=== PATIENT | female | born 1990 | race African-American/Black ===

== ENCOUNTER 2017-09-19 23:52 | Emergency (ER) | payer SELFPAY ==
[2017-09-20] MEDS ORDERED: Ibuprofen 800 MG TAB ONE (00:12)
== END 2017-09-20 00:55 | disposition home or self-care (01) ==
LOC: NAV ERS 23:52
DX: B34.9 Viral infection, unspecified (principal)
CPT/HCPCS: 99283

== ENCOUNTER 2018-02-11 22:58 | Emergency (ER) | payer SELFPAY ==
[2018-02-11 23:22] LABS: Bilirubin Negative (Negative); Blood, Urine Large (Negative); Glucose, Urine (Dipstick) Negative (Negative); Leukocyte Small (Negative); Nitrite Negative (Negative); Protein, Urine (Dipstick) 30 mg/dL (Neg-Trace)
[2018-02-11 23:26] LABS: Clarity Slightly Cloudy (Clear); Specific Gravity, Urine 1.032 (1.002-1.036)
[2018-02-11 23:27] LABS: Pregnancy Test - Urine (BHCG) Negative (Negative); Pregu Control Background? CLEAR/WHITE (CLR/WHITE); Pregu Control Bar Appear? YES (CONTROL BAR); Specific Gravity 1.032 (1.002-1.036)
[2018-02-11] MEDS ORDERED: Ketorolac Tromethamine 30 MG/ML VIAL ONE (23:27)
[2018-02-11] MEDS ORDERED: Ondansetron HCl/PF 4 MG/2 ML Vial ONE (23:27)
[2018-02-11] MEDS ORDERED: Sodium Chloride 0.9% 1,000 ML ONE (23:27)
[2018-02-11 23:30] LABS: Bacteria/HPF 1+ HPF (None Seen)
[2018-02-11 23:43] LABS: #Basophils 0.1 thou/uL (0.0-0.2); #Eosinphils 0.1 thou/uL (0.0-0.7); #Monocytes 0.6 thou/uL (0.11-0.59); #Neutrophils 4.4 thou/uL (1.40-6.50); %Basophils 1.2 % (0.0-1.0); %Eosinophils 0.7 % (0.0-10.0); %Lymphocytes 49.3 % (21.0-51.0); %Monocytes 5.8 % (0.0-10.0); Hemoglobin 11.2 g/dL (12.0-16.0); Mean Corpuscular HGB CONC 30.6 g/dL (32.0-36.0); Mean Corpuscular Hemoglobin 26.9 pg (27.0-31.0); Mean Corpuscular Volume 87.9 fl (81.0-99.0); Mean Platelet Volume 8.2 fL (7.4-10.4); Platelet Count 308 thou/uL (130-400); RBC Distribution Width 11.8 % (11.5-14.5); Red Blood Cell (RBC) Count 4.18 mill/uL (4.20-5.40); White Blood Cell (WBC) Count 10.1 thou/uL (4.8-10.8)
[2018-02-11 23:57] LABS: ALT (SGPT) 14 U/L (8-55); AST (SGOT) 15 U/L (5-34); Alkaline Phosphatase 73 U/L (40-150); Anion Gap 11 mmol/L (10-20); BUN (Urea Nitrogen) 11 mg/dL (7.0-18.7); Bilirubin, Total 0.2 mg/dL (0.2-1.2); Calc. Creatinine Clearance 0 mL/min (70-130); Calcium 9.3 mg/dL (7.8-10.44); Carbon Dioxide 25 mmol/L (22-29); Chloride 107 mmol/L (98-107); Estimated GFR-MDRD Greater than 90; Globulin 3.1 g/dL (2.4-3.5); Glucose 106 mg/dL (70-105); Potassium 4.2 mmol/L (3.5-5.1); Protein, Total 7.1 g/dL (6.0-8.3); Sodium 139 mmol/L (136-145)
--- NOTE | 2018-02-12 | CT ---
ABDOMEN CT WITHOUT CONTRAST PELVIC CT WITHOUT CONTRAST 02/11/18 HISTORY: Right lower quadrant pain. COMPARISON: None. TECHNIQUE: An abdomen and pelvic CT performed without IV or oral contrast utilizing a renal stone protocol. Jorge nal reformatted images are submitted for interpretation. FINDINGS: ABDOMEN CT: Lung bases are clear. Normal heart size. No pericardial effusion. The visualized aorta has a normal c aliber. Limited evaluation of the solid organs by the lack of IV contrast. No solid organ abnormality. Gallbladder is contracted, likely due to a nonfasting state. No gastrohepatic, retrocrural or periportal lymphadenopathy. No mesenteric mass, lymphadenopathy, free air or free fluid. There are punctate 1 to 2 mm calcifications in the left and right renal pelvis. Bilaterally, no hydro nephrosis or perinephric fat stranding. Bilateral ureters have a normal caliber. No hydroureter, shin ureteral fat stranding or ureterolithiasis. Limited evaluation of the alimentary canal due to lack o f oral contrast. Ingested material is noted in a nondistended stomach. Duodenum and small bowel loops are unremarkable. Ileocecal junction is normal. There is scattered fecal material in a nondistended, nondilated colon. occasional diverticulum. No evidence of diverticulitis. Emanating from the cecal a pex is a tubular structure, compatible with a normal caliber appendix. No periappendiceal inflammatio n. PELVIC CT: Limited evaluation of the urinary bladder due to decompression. Pelvic and adnexal structures are rick ssly unremarkable. There is a well circumscribed hypodensity which may be in the lower uterine segment or vaginal vault. Further evaluation with pelvic ultrasound is recommended. IMPRESSION: 1. Punctate nonobstructing bilateral intrarenal calculi. Bilaterally, no obstructive uropathy. 2. Normal caliber appendix. 3. Hypodensity in the lower uterine segment or vaginal vault which can be further assessed with pelvic MRI. POS: [facility]
[2018-02-12] MEDS ORDERED: Cipro 250 MG TAB ONE (00:17)
[2018-02-12] MEDS ORDERED: metroNIDAZOLE 500 MG TAB ONE (00:17)
== END 2018-02-12 00:45 | disposition home or self-care (01) ==
LOC: NAV ERS 22:58
DX: N10 Acute pyelonephritis (principal)
CPT/HCPCS: 74176; 80053; 81003; 81015; 81025; 85025; 87086; 96361; 96374; 96375; J1885; J2405; J7050

== ENCOUNTER 2018-11-26 22:02 | Emergency (ER) | payer BC, SELFPAY ==
[2018-11-26 22:37] LABS: Bacteria/HPF None Seen HPF (None Seen); Bilirubin Negative (Negative); Blood, Urine Trace (Negative); Clarity Clear (Clear); Glucose, Urine (Dipstick) Negative (Negative); Leukocyte Negative (Negative); Nitrite Negative (Negative); Pregnancy Test - Urine (BHCG) POSITIVE (Negative); Pregu Control Background? CLEAR/WHITE (CLR/WHITE); Pregu Control Bar Appear? YES (CONTROL BAR); Protein, Urine (Dipstick) Negative (Neg-Trace); Specific Gravity 1.025 (1.002-1.036); Specific Gravity, Urine 1.025 (1.005-1.030); Squamous Epithelial 0-3 HPF (0-3); WBC/HPF None Seen HPF (0-3)
[2018-11-26] MEDS ORDERED: Acetaminophen 500 MG TAB ONE (22:37)
== END 2018-11-26 22:55 | disposition home or self-care (01) ==
LOC: NAV ERS 22:02
DX: O21.9 Vomiting of pregnancy, unspecified (principal)
CPT/HCPCS: 81003; 81015; 81025; 99284

== ENCOUNTER 2020-06-07 21:07 | Emergency (ER) | payer BC | END 2020-06-07 21:50 | disposition home or self-care (01) | LOC: NAV ERS 21:07 | DX: K52.9 Noninfective gastroenteritis and colitis, unspecified (principal) | CPT/HCPCS: 99283 ==

== ENCOUNTER 2020-11-19 20:35 | Emergency (ER) | payer BC ==
[2020-11-19] MEDS ORDERED: Sodium Chloride 0.9% 1,000 ML ONE (20:58)
[2020-11-19 21:03] LABS: Bilirubin Negative (Negative); Blood, Urine Moderate (Negative); Clarity Cloudy (Clear); Glucose, Urine (Dipstick) Negative (Negative); Ketone, Urine 15 mg/dL (Negative); Leukocyte Small (Negative); Nitrite Negative (Negative); Protein, Urine (Dipstick) 100 mg/dL (Neg-Trace); Specific Gravity, Urine 1.025 (1.002-1.036); pH, Urine 6.5 (5.0-9.0)
[2020-11-19 21:04] LABS: Bacteria/HPF 2+ HPF (None Seen); WBC/HPF 21-50 HPF (0-3)
[2020-11-19 21:22] LABS: #Basophils 0.1 thou/uL (0.0-0.2); #Lymphocytes 3.2 thou/uL (1.20-3.40); #Monocytes 0.7 thou/uL (0.11-0.59); #Neutrophils 5.5 thou/uL (1.40-6.50); %Basophils 0.9 % (0.0-1.0); %Eosinophils 0.4 % (0.0-10.0); %Lymphocytes 33.7 % (21.0-51.0); %Monocytes 7.2 % (0.0-10.0); %Neutrophils 57.8 % (42.0-75.0); BHCG - Serum Negative (NEGATIVE); Hemoglobin 10.8 g/dL (12.0-16.0); Mean Corpuscular HGB CONC 31.4 g/dL (32.0-36.0); Mean Corpuscular Hemoglobin 28.2 pg (27.0-31.0); Mean Corpuscular Volume 89.8 fL (78.0-98.0); Mean Platelet Volume 8.6 fL (7.4-10.4); Platelet Count 304 thou/uL (130-400); Pregs Control Bar Appear? YES (CONTROL BAR); RBC Distribution Width 12.5 % (11.5-14.5); Red Blood Cell (RBC) Count 3.82 mill/uL (4.20-5.40); White Blood Cell (WBC) Count 9.6 thou/uL (4.8-10.8)
[2020-11-19 21:35] LABS: ALT (SGPT) 18 U/L (8-55); AST (SGOT) 18 U/L (5-34); Alkaline Phosphatase 78 U/L (40-110); Anion Gap 14 mmol/L (10-20); BUN (Urea Nitrogen) 13 mg/dL (7.0-18.7); Bilirubin, Total 0.3 mg/dL (0.2-1.2); Calc. Creatinine Clearance 0 mL/min (70-130); Carbon Dioxide 25 mmol/L (22-29); Chloride 104 mmol/L (98-107); Globulin 3.1 g/dL (2.4-3.5); Glucose 98 mg/dL (70-105); Potassium 3.9 mmol/L (3.5-5.1); Protein, Total 7.1 g/dL (6.0-8.3); Sodium 139 mmol/L (136-145)
[2020-11-19 21:43] LABS: Lipase 53 U/L (8-78)
--- NOTE | 2020-11-19 22:05 | CT ---
CT Abdomen Pelvis WO Con: 11/19/2020 7:15 PM HISTORY: Left lower quadrant abdominal pain COMPARISON: 02/11/2018 TECHNIQUE: Multiple contiguous axial images were obtained and a CT of the abdomen and pelvis without IV contrast . Coronal and sagittal reformats were performed. FINDINGS: This examination is limited for the evaluation of solid organs and vascular structures due to the lac k of intravenous contrast. Lower Chest: within normal limits. Abdomen: Liver: within normal limits. Bile Ducts: Normal caliber. Gallbladder: Contracted Pancreas: within normal limits. Spleen: within normal limits. Adrenals: within normal limits. Kidneys: Punctate nonobstructing calcifications are seen in both kidneys. . Pelvis: Reproductive Organs: A stable cystic structure in the region the cervix may represent a nabothian cys t. Ureters: within normal limits .No ureteral calcifications are seen Bladder: within normal limits. Bowel: Normal caliber. Normal appendix. Mesenteric Lymph Nodes: No enlarged mesenteric lymph nodes. Peritoneum: No ascites or free air, no fluid collection. Vessels: Normal caliber aorta Retroperitoneum: within normal limits. Abdominal Wall: within normal limits. Bones: Unremarkable. IMPRESSION: 1. No evidence of acute intraabdominal or pelvic abnormality. 2.. Nonobstructing bilateral renal calcifications 3. Likely nabothian cyst in the cervix.
[2020-11-19] MEDS ORDERED: Cipro 250 MG TAB ONE (22:18)
== END 2020-11-19 22:55 | disposition home or self-care (01) ==
LOC: NAV ERS 20:35
DX: N30.00 Acute cystitis without hematuria (principal); K52.9 Noninfective gastroenteritis and colitis, unspecified; D64.9 Anemia, unspecified; N20.0 Calculus of kidney
CPT/HCPCS: 74176; 80053; 81003; 81015; 83605; 83690; 84703; 85025; J7050

== ENCOUNTER 2021-04-03 18:58 | Emergency (ER) | payer BC ==
[2021-04-03] MEDS ORDERED: Benzonatate 100 MG CAP ONE (20:33)
[2021-04-03] MEDS ORDERED: Azithromycin 250 MG TAB ONE (20:33)
[2021-04-03] MEDS ORDERED: Ibuprofen 200 MG TAB ONE (20:33)
[2021-04-04 17:02] LABS: SARS-CoV-2 PCR by NAA DETECTED (NotDetected)
== END 2021-04-03 20:40 | disposition home or self-care (01) ==
LOC: NAV ERS 18:58
DX: J20.9 Acute bronchitis, unspecified (principal); J01.90 Acute sinusitis, unspecified; Z20.822 Contact with and (suspected) exposure to COVID-19
CPT/HCPCS: 87804; 99283; U0003; U0005

== ENCOUNTER 2021-06-12 21:38 | Emergency (ER) | payer BC, OTHER, SELFPAY ==
[~2021-06-12 21:38] MED LIST: Iopamidol 370 76% 100 ML VIAL ONE
[2021-06-12 22:19] LABS: Bilirubin Negative (Negative); Blood, Urine Moderate (Negative); Glucose, Urine (Dipstick) Negative (Negative); Ketone, Urine Negative (Negative); Leukocyte Trace (Negative); Nitrite Negative (Negative); Protein, Urine (Dipstick) 30 mg/dL (Neg-Trace)
[2021-06-12 22:20] LABS: Clarity Hazy (Clear); Specific Gravity, Urine 1.032 (1.002-1.036)
[2021-06-12 22:21] LABS: Bacteria/HPF Rare-Few HPF (None Seen); Squamous Epithelial 0-3 HPF (0-3)
[2021-06-12 22:54] LABS: #Basophils 0.1 thou/uL (0.0-0.2); #Eosinphils 0.1 thou/uL (0.0-0.7); #Lymphocytes 4.7 thou/uL (1.20-3.40); #Monocytes 0.6 thou/uL (0.11-0.59); %Basophils 1.2 % (0.0-1.0); %Eosinophils 0.6 % (0.0-10.0); %Lymphocytes 44.4 % (21.0-51.0); %Monocytes 5.9 % (0.0-10.0); %Neutrophils 47.9 % (42.0-75.0); Hemoglobin 11.9 g/dL (12.0-16.0); Hypochromia SLIGHT = 6-15 cells (100X) (0-5/hpf); MDiff Complete? YES; Mean Corpuscular HGB CONC 29.5 g/dL (32.0-36.0); Mean Corpuscular Hemoglobin 27.6 pg (27.0-31.0); Mean Corpuscular Volume 93.6 fL (78.0-98.0); Mean Platelet Volume 11.2 fL (7.4-10.4); Platelet Clumps SLIGHT; Platelet Count 72 thou/uL (130-400); Platelet Morphology Comment Appears Adequate; RBC Distribution Width 12.7 % (11.5-14.5); Red Blood Cell (RBC) Count 4.29 mill/uL (4.20-5.40); White Blood Cell (WBC) Count 10.5 thou/uL (4.8-10.8)
[2021-06-12 23:01] LABS: ALT (SGPT) 12 U/L (8-55); AST (SGOT) 16 U/L (5-34); Albumin 3.8 g/dL (3.5-5.0); Alkaline Phosphatase 71 U/L (40-110); Anion Gap 13 mmol/L (10-20); BUN (Urea Nitrogen) 11 mg/dL (7.0-18.7); Bilirubin, Total 0.2 mg/dL (0.2-1.2); Calc. Creatinine Clearance 0 mL/min (70-130); Calcium 9.1 mg/dL (7.8-10.44); Carbon Dioxide 22 mmol/L (22-29); Chloride 106 mmol/L (98-107); Globulin 3.2 g/dL (2.4-3.5); Glucose 93 mg/dL (70-105); Potassium 3.9 mmol/L (3.5-5.1); Sodium 137 mmol/L (136-145)
[2021-06-13] MEDS ORDERED: Ibuprofen 800 MG TAB ONE (00:20)
== END 2021-06-13 00:30 | disposition home or self-care (01) ==
LOC: NAV CT 21:38 → NAV ERS 21:38
DX: N30.00 Acute cystitis without hematuria (principal)
CPT/HCPCS: 36415; 74177; 80053; 81003; 81015; 85025; Q9967

== ENCOUNTER 2021-07-20 20:56 | Emergency (ER) | payer OTHER, SELFPAY ==
[2021-07-20 21:52] LABS: Bilirubin Negative (Negative); Blood, Urine Moderate (Negative); Clarity Clear (Clear); Glucose, Urine (Dipstick) Negative (Negative); Ketone, Urine Negative (Negative); Leukocyte Negative (Negative); Nitrite Negative (Negative); Protein, Urine (Dipstick) Negative (Neg-Trace); pH, Urine 6.5 (5.0-9.0)
[2021-07-20 21:53] LABS: Pregnancy Test - Urine (BHCG) Negative (Negative); Pregu Control Background? CLEAR/WHITE (CLR/WHITE); Pregu Control Bar Appear? YES (CONTROL BAR); Specific Gravity 1.029 (1.002-1.036)
[2021-07-20 21:54] LABS: Specific Gravity, Urine 1.029 (1.002-1.036)
[2021-07-20 21:55] LABS: RBC/HPF 21-50 HPF (0-3)
[2021-07-20 21:56] LABS: Bacteria/HPF Rare-Few HPF (None Seen); Squamous Epithelial 0-3 HPF (0-3)
[2021-07-20] MEDS ORDERED: Ketorolac Tromethamine 30 MG/ML VIAL ONE (22:11)
[2021-07-20 22:36] LABS: #Basophils 0.1 thou/uL (0.0-0.2); #Lymphocytes 3.4 thou/uL (1.20-3.40); #Monocytes 0.6 thou/uL (0.11-0.59); #Neutrophils 7.2 thou/uL (1.40-6.50); %Basophils 0.7 % (0.0-1.0); %Eosinophils 0.4 % (0.0-10.0); %Lymphocytes 30.1 % (21.0-51.0); %Monocytes 5.2 % (0.0-10.0); %Neutrophils 63.6 % (42.0-75.0); Hemoglobin 12.3 g/dL (12.0-16.0); Mean Corpuscular HGB CONC 31.1 g/dL (32.0-36.0); Mean Corpuscular Hemoglobin 28.3 pg (27.0-31.0); Mean Corpuscular Volume 91.1 fL (78.0-98.0); Mean Platelet Volume 8.1 fL (7.4-10.4); Platelet Count 329 thou/uL (130-400); RBC Distribution Width 12.4 % (11.5-14.5); Red Blood Cell (RBC) Count 4.33 mill/uL (4.20-5.40); White Blood Cell (WBC) Count 11.3 thou/uL (4.8-10.8)
[2021-07-20 22:51] LABS: ALT (SGPT) 13 U/L (8-55); AST (SGOT) 15 U/L (5-34); Albumin 4.3 g/dL (3.5-5.0); Alkaline Phosphatase 79 U/L (40-110); Anion Gap 12 mmol/L (10-20); BUN (Urea Nitrogen) 16 mg/dL (7.0-18.7); Bilirubin, Total 0.3 mg/dL (0.2-1.2); Calc. Creatinine Clearance 0 mL/min (70-130); Calcium 9.8 mg/dL (7.8-10.44); Carbon Dioxide 25 mmol/L (22-29); Chloride 103 mmol/L (98-107); Globulin 3.6 g/dL (2.4-3.5); Glucose 92 mg/dL (70-105); Protein, Total 7.9 g/dL (6.0-8.3); Sodium 136 mmol/L (136-145)
[2021-07-20] MEDS ORDERED: Cephalexin 250 MG CAP ONE (23:21)
[2021-07-20] MEDS ORDERED: Cyclobenzaprine 10 MG TAB ONE (23:21)
== END 2021-07-20 23:39 | disposition home or self-care (01) ==
LOC: NAV ERS 20:56
DX: N39.0 Urinary tract infection, site not specified (principal); M54.5 Low back pain
CPT/HCPCS: 74176; 80053; 81003; 81015; 81025; 85025; 87086; 96374; J1885

== ENCOUNTER 2021-12-01 08:39 | Emergency (ER) | payer OTHER, SELFPAY ==
[2021-12-01 21:44] LABS: SARS-CoV-2 PCR by NAA Not Detected (NotDetected)
== END 2021-12-01 10:26 | disposition home or self-care (01) ==
LOC: NAV ERS 08:39
DX: B34.9 Viral infection, unspecified (principal); Z20.822 Contact with and (suspected) exposure to COVID-19
CPT/HCPCS: 87081; 87430; 87804; 99283; U0003; U0005

== ENCOUNTER 2022-01-11 08:45 | Emergency (ER) | payer BC | END 2022-01-11 10:30 | disposition home or self-care (01) | LOC: NAV ERS 08:45 | DX: B34.9 Viral infection, unspecified (principal); J06.9 Acute upper respiratory infection, unspecified | CPT/HCPCS: 87804; 99283 ==

== ENCOUNTER 2022-03-02 22:55 | Emergency (ER) | payer BC, OTHER | END 2022-03-02 23:40 | disposition home or self-care (01) | LOC: NAV ERS 22:55 | DX: J06.9 Acute upper respiratory infection, unspecified (principal) | CPT/HCPCS: 87804; 99283 ==

== ENCOUNTER 2023-03-13 04:25 | Emergency (ER) | payer BC, OTHER ==
[2023-03-13] MEDS ORDERED: Acetaminophen 325 MG TAB ONE (05:02)
== END 2023-03-13 06:02 | disposition home or self-care (01) ==
LOC: NAV ERS 04:25
DX: B34.9 Viral infection, unspecified (principal); Z20.822 Contact with and (suspected) exposure to COVID-19
CPT/HCPCS: 87081; 87430; 87635; 87804; 99283

== ENCOUNTER 2025-06-15 19:14 | Emergency (ER) | payer OTHER, SELFPAY ==
[2025-06-15] MEDS ORDERED: Benzonatate 100 MG CAP ONE (20:23)
== END 2025-06-15 21:05 | disposition home or self-care (01) ==
LOC: NAV ERS 19:14
DX: B34.9 Viral infection, unspecified (principal)
CPT/HCPCS: 87426; 99283